=== PATIENT | male | born 1980 | race Caucasian/White ===

== ENCOUNTER 2020-07-10 15:14 | Emergency (ER) | payer OTHER ==
[~2020-07-10] VITALS: Ht 177.8 cm; Wt 95.7 kg
[2020-07-11] MEDS ORDERED: VOLTAREN-XR100 MG (03:52)
== END 2020-07-10 18:40 | disposition home or self-care (01) ==
LOC: ER 15:14
DX: M75.31 Calcific tendinitis of right shoulder (principal)

== ENCOUNTER 2020-07-11 03:41 | Emergency (ER) | payer OTHER ==
[~2020-07-11] VITALS: Ht 172.7 cm; Wt 95.3 kg
[2020-07-11] MEDS ORDERED: VOLTAREN-XR100 MG (03:52)
[2020-07-12] MEDS ORDERED: ULTRAM50 MG PO (03:18)
== END 2020-07-11 05:20 ==
LOC: ER 03:41
DX: M75.81 Other shoulder lesions, right shoulder (principal)

== ENCOUNTER 2020-07-12 00:17 | Emergency (ER) | payer OTHER ==
[~2020-07-12] VITALS: Ht 175.3 cm; Wt 95.3 kg
[~2020-07-12 00:17] MED LIST: VOLTAREN-XR100 MG
[2020-07-12] MEDS ORDERED: ULTRAM50 MG PO (03:18)
== END 2020-07-12 03:28 | disposition home or self-care (01) ==
LOC: ER 00:17
DX: M75.81 Other shoulder lesions, right shoulder (principal)

== ENCOUNTER 2021-08-25 13:52 | Emergency (ER) | payer OTHER ==
[~2021-08-25] VITALS: Ht 157.5 cm; Wt 86.2 kg
[~2021-08-25 13:52] MED LIST changes: +ULTRAM50 MG PO
== END 2021-08-25 16:44 | disposition home or self-care (01) ==
LOC: ER 13:52
DX: M77.8 Other enthesopathies, not elsewhere classified (principal); M25.511 Pain in right shoulder

== ENCOUNTER 2022-09-28 11:27 | Emergency (ER) | payer OTHER ==
[~2022-09-28] VITALS: Ht 175.3 cm; Wt 81.6 kg
== END 2022-09-28 18:25 | disposition home or self-care (01) ==
LOC: ER 11:27
DX: M62.838 Other muscle spasm (principal)